=== PATIENT | male | born 1965 | race Caucasian/White ===

== ENCOUNTER 2016-09-27 17:53 | Inpatient (IN) | payer OTHER ==
--- NOTE | ~2016-09-27 | PA ---
Unit #: [id number] #: [id number] Patient: LAUREL CLEMENT [id number] [facility] [address] [place] [address] [id number] MR#: [id number] NAME: LAUREL CLEMENT ROOM: P175 Age: 51 Sex: M Admission Date: 09/27/2016 : 1965 Date of Assessment: 09/27/2016 Attending Physician: Rony Newby M.D. Admitting Physician: Rony Newby M.D. Primary Care Physician: Primary Care Physician No PSYCHIATRIC ASSESSMENT DATE OF SERVICE 09/27/2016. INFORMANTS The patient, reliable; OLOP, reliable. CHIEF COMPLAINT "I need to stop drinking." HISTORY OF PRESENT ILLNESS Mr. oJn is a 51-year-old man with the above chief complaint. He has been staying at the [facility] and reports he is unable to maintain sobriety despite their ongoing program. He had multiple stressors and reported brief short-term memory problems when his drinking. He has a history of suicide attempts, but denied suicidal ideation, intent, or plan and was admitted for polysubstance detox. PAST PSYCHIATRIC HISTORY Mr. Jon has been admitted to this facility in the past under the care of Dr. Sandhu. He is currently staying at the [facility] for chemical dependence and psychiatric care. He has been hospitalized in other states as well. FAMILY PSYCHIATRIC HISTORY None reported. SOCIAL HISTORY The patient is a 49-year-old white male, who is single with a poor social support system. Please see previous assessments for details. PAST MEDICAL HISTORY Significant for HIV and asthma. MEDICATIONS Please see MAR. ALLERGIES Amoxicillin. SUBSTANCE ABUSE HISTORY The patient has a long history of abusing alcohol, marijuana, cocaine, and methamphetamine. Unit #: [id number] #: [id number] Patient: LAUREL CLEMENT MENTAL STATUS EXAMINATION The patient presented as a disheveled man, who appeared older than his stated age. He was cooperative with the examination. His speech was spontaneous and easily understood. Musculoskeletal examination was calm. His mood was irritable with a congruent affect. He was alert and fully oriented. Memory and concentration were fair. Thought processes were goal directed with no active psychosis. He denied active suicidal ideation, intent, or plan. Insight and judgment, fair. Fund of knowledge and abstraction, fair. ASSETS AND LIABILITIES The patient knows local resources and has placement at a fdc house. Liabilities include difficulty maintaining sobriety, erratic compliance with medical treatments. ADMITTING DIAGNOSES AXIS I: Alcohol dependence with withdrawal, uncomplicated; amphetamine abuse; substance-induced mood disorder. AXIS II: No diagnosis. AXIS III: Human immunodeficiency virus positive status, history of chronic obstructive pulmonary disease. AXIS IV: AXIS V: PSYCHIATRIC PLAN The patient was admitted and placed on the alcohol detox protocol. unix consultant was seen and no new recommendations were made. The patient declined initiation of an antidepressant medication. He will enroll in dual diagnosis groups and activities and physical examination will be further conducted. TREATMENT GOALS Resolution of intoxication, improvement in insight, and improvement in coping skills. DISCHARGE PLANNING Follow up with Audie and with the CD-IOP at this facility. ESTIMATED LENGTH OF STAY 5 days. Dictated by... Rony Newby M.D. H/julian TD: 11/21/2016 00:05 JOB #: [id number] Unit #: [id number] #: [id number] Patient: LAUREL CLEMENT PSYCHIATRIC ASSESSMENT Page 1 of 1 X Rony Newby MD X PSYCHIATRIC ASSESSMENT
--- NOTE | ~2016-09-27 | DS ---
Unit #: [id number] #: [id number] Patient: LAUREL CLEMENT [id number] [place] [address] [id number] MR#: [id number] NAME: LAUREL CLEMENT ROOM: 75 Age: 51 Sex: M Admission Date: 09/27/2016 : 1965 Discharge Date: 09/30/2016 Attending Physician: Rony Newby M.D. Primary Care Physician: Primary Care Physician No DISCHARGE SUMMARY REASON FOR ADMISSION Miguel Clement is a 51-year-old man, with a history of alcohol dependence and multiple medical problems, who presented reporting increasing difficulty maintaining sobriety from alcohol, meth, and crack cocaine. He was admitted for stabilization. HOSPITAL COURSE The patient was admitted and placed on the alcohol detox protocol. He was seen by our manager medical affairs and no new recommendations were made. He had an uneventful period of inpatient detox, and his home medications were explored and restarted. He did not require initiation of an antidepressant and on discharge he was able to contract for safety with followup in the intensive outpatient program. DISCHARGE DIAGNOSES [place] I Alcohol dependence. Amphetamine abuse. Substance-induced mood disorder. [place] II No diagnosis. [place] III HIV positive. History of chronic obstructive pulmonary disease. [place] IV [place] V INSTRUCTIONS TO PATIENT Follow up with the CD/IOP at [facility]. DISCHARGE MEDICATIONS The patient was continued on Triumeq one daily for viral infection and Combivent inhaler as needed for shortness of air from primary care physician. CONDITION AT DISCHARGE Improved. PROGNOSIS Good. DIET AND ACTIVITY Ad jeanie. Unit #: [id number] #: [id number] Patient: LAUREL CLEMENT Dictated by... Adan Wallace/kaleigh TD: 11/14/2016 08:46 JOB #: [id number] DISCHARGE SUMMARY Page 1 of 1 X Rony Newby MD DISCHARGE SUMMARY
--- NOTE | ~2016-09-27 | HP ---
Unit #: [id number] #: [id number] Patient: AUGUSTO CLEMENT [id number] [facility] [address] [place] [address] [id number] MR#: [id number] NAME: AUGUSTO CLEMENT ROOM: P175 Age: 51 Sex: M Admission Date: 09/27/2016 : 1965 Attending Physician: Rony Newby M.D. Admitting Physician: Rony Newby M.D. Primary Care Physician: Primary Care Physician No HISTORY AND PHYSICAL HISTORY OF PRESENT ILLNESS Augusto is a 51 year old admitted to [facility] because of his continued alcohol abuse. He has had other admissions to this facility for the same. PAST MEDICAL HISTORY 1. Long history of polysubstance abuse to include alcohol, meth and crack cocaine. a. History of IV drugs. 2. COPD. 3. Positive HIV, diagnosed 2009. 4. History of genital herpes. PAST SURGICAL HISTORY T and A. ALLERGIES Penicillin. SOCIAL HISTORY He smokes 1 pack per day. Drinks alcohol frequently. Has a history of illicit drug use to include methamphetamines and crack cocaine. FAMILY HISTORY Medically noncontributory. REVIEW OF SYSTEMS CONSTITUTIONAL: No fever or chills. HEENT: Denies any sore throat, ear pain or runny nose. CARDIOVASCULAR: Denies chest pain, irregular heart rhythm or palpitations. CHEST: Denies shortness of breath or cough. No hemoptysis. GASTROINTESTINAL: Denies nausea, vomiting, diarrhea or chronic constipation. ENDOCRINE: Denies history of increased thirst or urination. No recent significant weight loss or gain. GENITOURINARY: Denies dysuria, frequency, or hematuria. SKIN: Denies any rashes. HEMATOLOGIC: Denies history of increased bleeding or bruising. MUSCULOSKELETAL: Denies any hot, swollen joints. No generalized muscle pain. NEUROLOGIC: Denies problems with vision or speech. No frequent, severe headaches. No numbness, tingling or weakness in any extremities. Denies loss of bladder or bowel control. Unit #: [id number] #: [id number] Patient: AUGUSTO CLEMENT CURRENT MEDICATIONS 1. Milk of Magnesia p.r.n. 2. Maalox p.r.n. 3. Tylenol p.r.n. 4. Detox protocol. PHYSICAL EXAMINATION GENERAL: Alert, well-nourished, no apparent distress. VITAL SIGNS: Blood pressure 122/76, heart rate 80, respirations 16, temperature 98.6. HEIGHT: 5 feet 9 inches. WEIGHT: 142. SKIN: Warm and dry without rash or lesion. HEENT: Normocephalic. TMs not viewed. Oral and nasal passages clear. Conjunctivae clear. PERRLA. EOMs intact. NECK: Supple without lymphadenopathy or thyromegaly. HEART: Regular rate and rhythm without murmur. LUNGS: Clear. ABDOMEN: Soft, nontender. : Not done. EXTREMITIES: No evidence of cyanosis, clubbing or edema. Moves all without focal deficit. NEUROLOGICAL: Unable to complete extended exam. He does move all extremities without focal deficit. 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 IMPRESSION Psychiatric admission. RECOMMENDATIONS PSYCHIATRIC: Per psychiatrist. MEDICAL: See no contraindications to participate in facility's activities. MEDICAL PROGNOSIS Good. MEDICAL CONDITION Stable. Dictated by... Zoe Nicolas P.A.-C. for Adan Todd/amie TD: 09/28/2016 17:56 JOB #: [id number] Unit #: [id number] #: [id number] Patient: AUGUSTO CLEMENT HISTORY AND PHYSICAL Page 1 of 1 X Zoe Nicolas X HISTORY AND PHYSICAL
[2016-09-28 09:51] LABS: BASOPHIL% 0.4 % (0-2.5); EOSINOPHIL# 0.1 X10e3 (0-0.7); EOSINOPHIL% 1.6 % (0.0-7.0); HEMATOCRIT 48.4 % (38.0-50.0); HEMOGLOBIN 16.4 gm/dL (13.0-16.0); LYMPHOCYTE# 3.6 X10e3 (1.0-3.5); LYMPHOCYTE% 54.5 % (17.0-45.0); MEAN CELL VOLUME 101.5 FL (83-96); MEAN CORPUSCULAR HEMOGLOBIN 34.4 PG (28-34); MEAN CORPUSCULAR HGB CONC 33.9 g/dL (30-36); MEAN PLATELET VOLUME 7.4 FL (6.5-11.5); MONOCYTE# 0.8 X10e3 (0-1.0); MONOCYTE% 11.9 % (3.0-12.0); NEUTROPHIL# 2.1 X10e3 (1.5-7.1); NEUTROPHIL% 31.6 % (40-75); PLATELET COUNT 267 X10e3 (140-420); RED BLOOD COUNT 4.76 X10e (3.90-5.60); WHITE BLOOD COUNT 6.7 X10e3 (4.0-10.5)
[2016-09-28 09:55] LABS: DIFF IND YES
[2016-09-28 10:11] LABS: ALBUMIN SERUM 4.3 g/dL (3.5-5.0); BILIRUBIN,TOTAL 0.7 mg/dL (0.2-2.0); CALCIUM SERUM 9.6 mg/dL (8.4-10.2); GLOM FILT RATE Estimated 85.6 mL/min (>60); POTASSIUM 4.5 mmol/L (3.5-5.1); PROTEIN TOTAL SERUM 7.2 g/dL (6.0-8.3)
[2016-09-28 10:54] LABS: PLATELET ESTIMATE NORMAL (NORMAL); RBC NORMAL YES
[2016-09-28 10:55] LABS: ANISOCYTOSIS SL; POIKILOCYTOSIS SL
== END 2016-09-30 12:40 | disposition home or self-care (01) | DRG 897 ==
LOC: P1E 17:53
PROVIDERS: Psychiatry & Neurology Psychiatry
PROC: HZ2ZZZZ Detoxification Services for Substance Abuse Treatment (ICD-10-PCS; principal; 2016-09-27)
DX: F10.230 Alcohol dependence with withdrawal, uncomplicated (principal); R45.851 Suicidal ideations; F10.20 Alcohol dependence, uncomplicated; F15.10 Other stimulant abuse, uncomplicated; F19.24 Other psychoactive substance dependence with psychoactive substance-induced mood disorder; Z21 Asymptomatic human immunodeficiency virus [HIV] infection status; J44.9 Chronic obstructive pulmonary disease, unspecified; Z88.0 Allergy status to penicillin; F17.210 Nicotine dependence, cigarettes, uncomplicated
CPT/HCPCS: 80053; 85025; 86592